=== PATIENT | female | born 1990 | race Caucasian/White ===

== ENCOUNTER 2016-09-19 06:16 | Inpatient (IN) | payer OTHER ==
[~2016-09-19] VITALS: Ht 167.6 cm; Wt 79.5 kg
[~2016-09-19 06:16] MED LIST: CEFTIN500 MG PO; DOXYCYCLINE HY100 MG PO; MOBIC15 MG PO; MOTRIN800 MG PO
[2016-09-19 07:32] LABS: EOSINOPHIL (%) 0.1 % (0-5); IMMATURE GRANULOCYTE (%) 1.8 % (0.0-0.7); IMMATURE GRANULOCYTE COUNT 2.6 K/uL; LYMPHOCYTE COUNT 0.6 K/uL (1.0-2.8); MCH 24.2 PG (29.0-34.0); MCV 69.1 FL (83-99); NEUTROPHIL (%) 86.5 % (45-76); NEUTROPHIL COUNT 12.5 K/uL (1.8-6.4); RBC DIS.WIDTH-CV 18.8 % (11.8-14.6); RED BLOOD COUNT 4.92 M/uL (3.80-5.20); WHITE BLOOD COUNT 14.4 K/uL (4.1-10.2)
[2016-09-19 07:43] LABS: CHLORIDE 96 mEq/L (99-109)
[2016-09-19 07:44] LABS: POTASSIUM 4.4 mEq/L (3.7-5.4); SODIUM 130 mEq/L (136-147)
[2016-09-19 07:45] LABS: GLUCOSE 92 mg/dL (70-99)
[2016-09-19 07:46] LABS: INTER. NORMALIZED RATIO 1.4; PROTHROMBIN TIME 14.9 (9.2-11.2); PTT 40.2 (25-32)
[2016-09-19 07:47] LABS: ANION GAP 22 MEQ/L (2-14)
[2016-09-19 07:49] LABS: GFR ESTIMATE (CALCULATED) 13 mL/min/
[2016-09-19 07:50] LABS: UREA NITROGEN (BUN) 66 mg/dL (9-23)
[2016-09-19 07:53] LABS: TROP-I INTERPRETATION NEGATIVE; TROPONIN-I < 0.01 ng/mL (0.0-0.30)
[2016-09-19 07:54] LABS: D-DIMER ELISA > 4.00 mg/L FEU (< 0.57)
[2016-09-19 08:18] LABS: HEMATOLOGY COMMENT 1 SMEAR COMPATIBLE
[2016-09-19 08:20] LABS: PLAT.SUFFICIENCY DECREASED; PLATELET COUNT 81 K/uL (156-360)
[2016-09-19 12:29] LABS: TOTAL BILIRUBIN 0.8 mg/dL (0.0-1.0)
[2016-09-19 12:30] LABS: ALKALINE PHOSPHATASE 143 IU/L (3-129)
[2016-09-19 15:28] LABS: BASE EXCESS -9.6 mEq/L (-3 to +3); CARBOXY HGB 2.1 % (0-5); COMMENTS - BLOOD GASES AC+; DEVICE NRBM; FI02 100 %; METHEMOGLOBIN 1.2 % (0-1.5); PCO2 46 mm Hg (35-45); PO2 73 mm Hg (80-100); SITE RR; TOTAL RESP RATE 40 resp/min
[2016-09-19 18:38] LABS: BASE EXCESS -7.7 mEq/L (-3 to +3); BICARBONATE 18.8 mEq/L (22-26); CARBOXY HGB 1.7 % (0-5); COMMENTS - BLOOD GASES C+AN/A; METHEMOGLOBIN 0.8 % (0-1.5); PCO2 42 mm Hg (35-45); PO2 73 mm Hg (80-100); SITE LR
[2016-09-19 18:39] LABS: DEVICE 840 VENTILATOR; FI02 100 %; MECHANICAL RATE 30 resp/min; MODE AC/PC; PEEP 7.5 CM/H20; PRESSURE CONTROL VENTILATION 23 CM H20; TOTAL RESP RATE 30 resp/min; pH 7.26 (7.35-7.45)
[2016-09-19 19:50] VITALS: BP 93/40
[2016-09-19 20:00] VITALS: BP 96/45
[2016-09-19 20:20] VITALS: BP 93/40
[2016-09-19 20:28] LABS: ADD MIUA? YES; BILIRUBIN SMALL; BLOOD TRACE; COLOR DK YELLOW ((YELLOW)); GLUCOSE (STRIP) NEGATIVE; KETONES NEGATIVE; LEUKOCYTES SMALL; NITRITE NEGATIVE; PH, URINE 5.5 (5-8); PROTEIN (STRIP) 30; SPECIFIC GRAVITY 1.023 (1.000-1.030)
[2016-09-19 20:36] LABS: AMPHETAMINE NEGATIVE (500 ng/mL); BARBITURATES NEGATIVE (200 ng/mL); BENZODIAZEPINES NEGATIVE (150 ng/mL); COCAINE PRESUMPTIVE POSITIVE (150 ng/mL); INTERNAL CONTROLS VALID? YES; METHADONE NEGATIVE (200 ng/mL); METHAMPHETAMINE NEGATIVE (500 ng/mL); OPIATES (MORPHINE) PRESUMPTIVE POSITIVE (100 ng/mL); OXYCODONE NEGATIVE (100 ng/mL); PHENCYCLIDINE NEGATIVE (25 ng/mL); PROPOXYPHENE NEGATIVE (300 ng/mL); THC CANNABINOIDS NEGATIVE (50 ng/mL); TRICYCLIC ANTIDEPRESSANTS NEGATIVE (300 ng/mL)
[2016-09-19 20:51] LABS: BACTERIA 1+; CASTS NONE SEEN /LPF; CRYSTALS PRESENT; EPITHELIAL CELLS 1+; MUCUS NONE SEEN; RED BLOOD CELLS 0-5 /HPF (0-5)
[2016-09-19 20:52] LABS: AMORPHOUS URATES CRYSTALS 3+
[2016-09-19 21:00] VITALS: BP 87/45
[2016-09-19 21:18] LABS: UR CREATININE CONCENTRATION 156.9 MG/DL
[2016-09-19 21:20] LABS: METH RESISTANT S AUREUS PCR POSITIVE (NEGATIVE)
[2016-09-19 21:30] LABS: PROBE CHECK PASS
[2016-09-19 21:35] LABS: ADD MEDTOX COMMENT Y
[2016-09-19 22:00] VITALS: BP 89/41
[2016-09-19 23:00] VITALS: BP 83/30
[2016-09-19 23:29] LABS: CHLORIDE 99 mEq/L (99-109); SODIUM 132 mEq/L (136-147)
[2016-09-19 23:30] LABS: MAGNESIUM 1.7 mg/dL (1.3-2.7)
[2016-09-19 23:32] LABS: GLUCOSE 109 mg/dL (70-99)
[2016-09-19 23:33] LABS: ANION GAP 15 MEQ/L (2-14); TOTAL BILIRUBIN 0.9 mg/dL (0.0-1.0)
[2016-09-19 23:35] LABS: BASE EXCESS -6.3 mEq/L (-3 to +3); CARBOXY HGB 1.5 % (0-5); COMMENTS - BLOOD GASES C+; DEVICE VENT; FI02 100 %; MECHANICAL RATE 30 resp/min; METHEMOGLOBIN 1.1 % (0-1.5); MODE A/CPC; PCO2 36 mm Hg (35-45); PO2 134 mm Hg (80-100); PRESSURE CONTROL VENTILATION 23 CM H20; SITE ALINE; TOTAL RESP RATE 30 resp/min; pH 7.33 (7.35-7.45)
[2016-09-19 23:36] LABS: UREA NITROGEN (BUN) 72 mg/dL (9-23)
[2016-09-19 23:36] LABS: PEEP 8 CM/H20
[2016-09-19 23:39] LABS: GFR ESTIMATE (CALCULATED) 19 mL/min/; POTASSIUM 3.4 mEq/L (3.7-5.4)
[2016-09-19 23:40] LABS: ALKALINE PHOSPHATASE 100 IU/L (3-129)
[2016-09-20] VITALS: BP 91/38
[2016-09-20 00:06] LABS: HEMATOCRIT 23.5 % (36.0-46.0); MCH 23.8 PG (29.0-34.0); MCHC 34.5 G/DL (30.0-36.0); MCV 68.9 FL (83-99); RBC DIS.WIDTH-CV 18.2 % (11.8-14.6); RBC DIS.WIDTH-SD 44.8 % (39-53); WHITE BLOOD COUNT 12.8 K/uL (4.1-10.2)
[2016-09-20 00:07] LABS: RED BLOOD COUNT 3.41 M/uL (3.80-5.20)
[2016-09-20 00:09] LABS: PLATELET COUNT ND K/uL (156-360)
[2016-09-20 01:00] VITALS: BP 78/32
[2016-09-20 02:00] VITALS: BP 101/47
[2016-09-20 04:07] LABS: BASE EXCESS -5.9 mEq/L (-3 to +3); BICARBONATE 19.5 mEq/L (22-26); CARBOXY HGB 1.8 % (0-5); METHEMOGLOBIN 1.5 % (0-1.5); PCO2 37 mm Hg (35-45); pH 7.33 (7.35-7.45)
[2016-09-20 04:08] LABS: COMMENTS - BLOOD GASES C+; DEVICE VENT; FI02 100 %; MECHANICAL RATE 30 resp/min; MODE A/C PC; PEEP 12 CM/H20; PO2 61 mm Hg (80-100); PRESSURE CONTROL VENTILATION 28 CM H20; SITE ALINE; TOTAL RESP RATE 30 resp/min
[2016-09-20 05:00] VITALS: BP 93/46
[2016-09-20 05:01] LABS: CHLORIDE 102 mEq/L (99-109); POTASSIUM 3.3 mEq/L (3.7-5.4); SODIUM 133 mEq/L (136-147)
[2016-09-20 05:02] LABS: MAGNESIUM 1.7 mg/dL (1.3-2.7)
[2016-09-20 05:03] LABS: GLUCOSE 102 mg/dL (70-99)
[2016-09-20 05:05] LABS: ANION GAP 12 MEQ/L (2-14)
[2016-09-20 05:07] LABS: GFR ESTIMATE (CALCULATED) 21 mL/min/
[2016-09-20 05:08] LABS: UREA NITROGEN (BUN) 69 mg/dL (9-23)
[2016-09-20 05:10] LABS: URIC ACID 11.1 mg/dL (3.1-9.2)
[2016-09-20 05:40] LABS: VANCOMYCIN, TROUGH 15.3 MCG/ML (10-20)
[2016-09-20 06:17] LABS: MCH 23.9 PG (29.0-34.0); MCHC 34.6 G/DL (30.0-36.0); MCV 69.2 FL (83-99); RBC DIS.WIDTH-CV 18.4 % (11.8-14.6); RBC DIS.WIDTH-SD 45.1 % (39-53); RED BLOOD COUNT 3.47 M/uL (3.80-5.20)
[2016-09-20 06:21] LABS: WHITE BLOOD COUNT 17.2 K/uL (4.1-10.2)
[2016-09-20 07:32] LABS: HEMATOLOGY COMMENT 1 SMEAR COMPATIBLE; PLATELET COUNT 87 K/uL (156-360)
[2016-09-20 09:58] LABS: HBSG INDEX 0.18
[2016-09-20 09:59] LABS: ANTI-HEPATITIS A VIRUS (IGM) Nonreactive; HAV INDEX 0.32
[2016-09-20 10:00] LABS: ANTI-HEPATITIS B CORE (IGM) Nonreactive; HBC IgM INDEX 0.14
[2016-09-20 10:01] LABS: HIV INDEX 0.06; HIV-1/2 AB/AG COMBO Nonreactive
[2016-09-20 11:00] LABS: HPCA INDEX 14.36
== END 2016-09-20 06:15 | disposition short-term general hospital (02) | DRG 871 ==
LOC: EME 06:16 → EDOF 11:26 → 4WEST 19:30
PROVIDERS: Emergency Medicine; Internal Medicine Nephrology
PROC: 0B9P30Z Drainage of Left Pleura with Drainage Device, Percutaneous Approach (ICD-10-PCS; principal; 2016-09-20)
PROC: 05HM33Z Insertion of Infusion Device into Right Internal Jugular Vein, Percutaneous Approach (ICD-10-PCS; principal; 2016-09-20)
PROC: 5A1935Z Respiratory Ventilation, Less than 24 Consecutive Hours (ICD-10-PCS; principal; 2016-09-20)
PROC: 0BH17EZ Insertion of Endotracheal Airway into Trachea, Via Natural or Artificial Opening (ICD-10-PCS; principal; 2016-09-20)
PROC: 0B9N30Z Drainage of Right Pleura with Drainage Device, Percutaneous Approach (ICD-10-PCS; principal; 2016-09-20)
DX: A41.9 Sepsis, unspecified organism (principal); J96.90 Respiratory failure, unspecified, unspecified whether with hypoxia or hypercapnia; I33.0 Acute and subacute infective endocarditis; G93.41 Metabolic encephalopathy; J96.01 Acute respiratory failure with hypoxia; R65.21 Severe sepsis with septic shock; J18.9 Pneumonia, unspecified organism; N17.9 Acute kidney failure, unspecified; J93.9 Pneumothorax, unspecified; J98.11 Atelectasis; E87.2 Acidosis; N39.0 Urinary tract infection, site not specified; E87.1 Hypo-osmolality and hyponatremia; F17.200 Nicotine dependence, unspecified, uncomplicated; E86.0 Dehydration; D72.829 Elevated white blood cell count, unspecified; F19.10 Other psychoactive substance abuse, uncomplicated; B19.20 Unspecified viral hepatitis C without hepatic coma; I07.9 Rheumatic tricuspid valve disease, unspecified; B95.62 Methicillin resistant Staphylococcus aureus infection as the cause of diseases classified elsewhere; D69.6 Thrombocytopenia, unspecified; N18.9 Chronic kidney disease, unspecified; B95.61 Methicillin susceptible Staphylococcus aureus infection as the cause of diseases classified elsewhere; F11.10 Opioid abuse, uncomplicated
CPT/HCPCS: 36600; 71010; 76770; 80048; 80053; 80074; 80202; 81003; 82570; 82803; 83605; 83735; 83880; 83935; 84100; 84156; 84300; 84484; 84550; 84999; 85025; 85027; 85379; 85610; 85730; 86703; 87040; 87070; 87077; 87147; 87186; 87205; 87641; 87801; 89190; 93005; 94002; 94640; 94799; 99202; 99281; 99285; C1751; J0330; J0610; J0696; J1644; J2250; J2543; J2704; J3010; J3370; J7030; J7050; J7070; S0028

== ENCOUNTER 2017-02-08 09:54 | Inpatient (IN) | payer OTHER ==
[~2017-02-08] VITALS: Ht 165.1 cm; Wt 63.7 kg
[2017-02-08 10:57] LABS: HEMATOCRIT 31.4 % (36.0-46.0); MCH 25.8 PG (29.0-34.0); MCHC 33.8 G/DL (30.0-36.0); MCV 76.4 FL (83-99); MEAN PLAT.VOLUME 12.9 uM^3 (9.5-12.4); PLATELET COUNT 110 K/uL (156-360); RBC DIS.WIDTH-CV 14.4 % (11.8-14.6); RBC DIS.WIDTH-SD 39.5 % (39-53); RED BLOOD COUNT 4.11 M/uL (3.80-5.20); WHITE BLOOD COUNT 23.5 K/uL (4.1-10.2)
[2017-02-08 11:11] LABS: CHLORIDE 90 mEq/L (99-109); POTASSIUM 3.5 mEq/L (3.7-5.4); SODIUM 126 mEq/L (136-147)
[2017-02-08 11:12] LABS: GLUCOSE 108 mg/dL (70-99)
[2017-02-08 11:14] LABS: ANION GAP 13 MEQ/L (2-14)
[2017-02-08 11:16] LABS: GFR ESTIMATE (CALCULATED) 41 mL/min/
[2017-02-08 11:17] LABS: UREA NITROGEN (BUN) 38 mg/dL (9-23)
[2017-02-08 11:40] LABS: TOTAL BILIRUBIN 1.4 mg/dL (0.0-1.0)
[2017-02-08 11:41] LABS: ALKALINE PHOSPHATASE 129 IU/L (3-129)
[2017-02-08 11:43] LABS: DIRECT BILIRUBIN 1.1 mg/dL (0.0-0.3)
[2017-02-08 13:00] LABS: QUANTITATIVE HCG < 4.0 MIU/ML
[2017-02-08 13:31] LABS: TROP-I INTERPRETATION INDETERMINATE; TROPONIN-I 0.42 ng/mL (0.0-0.30)
[2017-02-08 13:32] LABS: ADD MIUA? YES; BILIRUBIN NEGATIVE; BLOOD LARGE; COLOR YELLOW ((YELLOW)); GLUCOSE (STRIP) NEGATIVE; KETONES NEGATIVE; LEUKOCYTES TRACE; NITRITE NEGATIVE; PROTEIN (STRIP) 30; SPECIFIC GRAVITY 1.006 (1.000-1.030)
[2017-02-08 13:41] LABS: BACTERIA RARE /HPF; EPITHELIAL CELLS RARE /HPF; MUCUS TRACE /LPF; RED BLOOD CELLS 0-5 /HPF (0-5)
[2017-02-08 14:14] LABS: HBSG INDEX 0.24
[2017-02-08 14:15] LABS: ANTI-HEPATITIS A VIRUS (IGM) Nonreactive
[2017-02-08 14:16] LABS: ANTI-HEPATITIS B CORE (IGM) Nonreactive; HBC IgM INDEX 0.18
[2017-02-08 14:17] LABS: HIV INDEX 0.09; HIV-1/2 AB/AG COMBO Nonreactive
[2017-02-08 14:29] LABS: HPCA INDEX 12.38
[2017-02-08 14:50] LABS: AMPHETAMINES QUANT VALUE 0 NG/ML; BARBITUATES QUANT VALUE 0 NG/ML; BENZODIAZEPINES QUANT VALUE 0 NG/ML; BENZODIAZEPINES, URINE SCREEN Negative (200 ng/mL); MARIJUANA QUANT VALUE 0 NG/ML; PHENCYCLIDINE QUANT VALUE 0 NG/ML
[2017-02-08 18:03] VITALS: BP 99/88
[2017-02-08 19:15] VITALS: BP 93/49
[2017-02-08 21:07] LABS: TROP-I INTERPRETATION INDETERMINATE; TROPONIN-I 0.58 ng/mL (0.0-0.30)
[2017-02-08 23:10] VITALS: BP 94/62
[2017-02-09] VITALS (8 sets, daily range): BP systolic 82–113; BP diastolic 55–72
[2017-02-09 01:41] LABS: TROP-I INTERPRETATION INDETERMINATE; TROPONIN-I 0.53 ng/mL (0.0-0.30)
[2017-02-09 13:51] LABS: ANION GAP 9 MEQ/L (2-14); CHLORIDE 103 MEQ/L (99-109); GLUCOSE 112 mg/dL (70-99); POTASSIUM 3.5 MEQ/L (3.7-5.4); SAMPLE HEMOLYSIS CHECK 0; SAMPLE ICTERIC CHECK 0; SAMPLE LIPEMIA CHECK 0; UREA NITROGEN (BUN) 29 mg/dL (9-23)
[2017-02-09 13:53] LABS: GFR ESTIMATE (CALCULATED) > 59 mL/min/; SODIUM 134 MEQ/L (136-147)
[2017-02-09 15:45] LABS: ANION GAP 10 MEQ/L (2-14); CHLORIDE 100 MEQ/L (99-109); GLUCOSE 106 mg/dL (70-99); POTASSIUM 3.8 MEQ/L (3.7-5.4); SAMPLE HEMOLYSIS CHECK 1; SAMPLE ICTERIC CHECK 0; SAMPLE LIPEMIA CHECK 0; UREA NITROGEN (BUN) 29 mg/dL (9-23)
[2017-02-09 15:54] LABS: HEMATOCRIT 32.3 % (36.0-46.0); MCH 25.4 PG (29.0-34.0); MCHC 32.5 G/DL (30.0-36.0); MCV 78.2 FL (83-99); RBC DIS.WIDTH-CV 14.8 % (11.8-14.6); RBC DIS.WIDTH-SD 41.6 % (39-53); RED BLOOD COUNT 4.13 M/uL (3.80-5.20)
[2017-02-09 15:57] LABS: GFR ESTIMATE (CALCULATED) > 59 mL/min/; SODIUM 133 MEQ/L (136-147)
[2017-02-09 17:43] LABS: MEAN PLAT.VOLUME 12.6 uM^3 (9.5-12.4); PLAT.SUFFICIENCY DECREASED; PLATELET COUNT 106 K/uL (156-360)
[2017-02-09 19:28] LABS: ANION GAP 6 MEQ/L (2-14); CHLORIDE 103 MEQ/L (99-109); GFR ESTIMATE (CALCULATED) > 59 mL/min/; GLUCOSE 107 mg/dL (70-99); POTASSIUM 3.6 MEQ/L (3.7-5.4); SAMPLE HEMOLYSIS CHECK 0; SAMPLE ICTERIC CHECK 0; SAMPLE LIPEMIA CHECK 0; SODIUM 132 MEQ/L (136-147); UREA NITROGEN (BUN) 26 mg/dL (9-23)
== END 2017-02-10 03:02 | disposition short-term general hospital (02) | DRG 871 ==
LOC: EME 09:54 → 4EAST 11:44 → EDOF 11:44 → 4EAST 17:59
PROVIDERS: Hospitalist; Internal Medicine
DX: A41.02 Sepsis due to Methicillin resistant Staphylococcus aureus (principal); I33.0 Acute and subacute infective endocarditis; R65.21 Severe sepsis with septic shock; I26.90 Septic pulmonary embolism without acute cor pulmonale; I76 Septic arterial embolism; J18.9 Pneumonia, unspecified organism; J96.00 Acute respiratory failure, unspecified whether with hypoxia or hypercapnia; N17.9 Acute kidney failure, unspecified; E87.1 Hypo-osmolality and hyponatremia; L02.91 Cutaneous abscess, unspecified; I74.8 Embolism and thrombosis of other arteries; F11.20 Opioid dependence, uncomplicated; D64.9 Anemia, unspecified; B18.2 Chronic viral hepatitis C; D69.6 Thrombocytopenia, unspecified; E87.6 Hypokalemia; F17.210 Nicotine dependence, cigarettes, uncomplicated; K59.00 Constipation, unspecified; N18.9 Chronic kidney disease, unspecified; I12.9 Hypertensive chronic kidney disease with stage 1 through stage 4 chronic kidney disease, or unspecified chronic kidney disease; F19.10 Other psychoactive substance abuse, uncomplicated; B95.62 Methicillin resistant Staphylococcus aureus infection as the cause of diseases classified elsewhere; F14.929 Cocaine use, unspecified with intoxication, unspecified; D73.3 Abscess of spleen; K00.0 Anodontia; R00.0 Tachycardia, unspecified; I36.1 Nonrheumatic tricuspid (valve) insufficiency; I34.0 Nonrheumatic mitral (valve) insufficiency; I27.2 Other secondary pulmonary hypertension; R16.2 Hepatomegaly with splenomegaly, not elsewhere classified; B95.7 Other staphylococcus as the cause of diseases classified elsewhere; Z86.14 Personal history of Methicillin resistant Staphylococcus aureus infection; Z91.19 Patient's noncompliance with other medical treatment and regimen
CPT/HCPCS: 71020; 71250; 74176; 76937; 80048; 80048 91; 80053; 80074; 80076; 80306 90; 81003; 83605; 83735; 83930; 84484; 84702; 85025; 85027; 86703; 87040; 87077; 87116; 87186; 87206; 87641; 87801; 93306; 99281; 99285; C1753; J1580; J1644; J2270; J2543; J3370; J3475; J3480; J7030; J7050; S0028

== ENCOUNTER 2017-06-24 21:12 | Emergency (ER) | payer OTHER ==
[~2017-06-24] VITALS: Ht 165.1 cm; Wt 77.0 kg
[2017-06-24 21:38] LABS: HEMATOCRIT 41.7 % (36.0-46.0); MCH 28.6 PG (29.0-34.0); MCHC 31.9 G/DL (30.0-36.0); MCV 89.7 FL (83-99); MEAN PLAT.VOLUME 10.5 uM^3 (9.5-12.4); PLATELET COUNT 270 K/uL (156-360); RBC DIS.WIDTH-CV 14.7 % (11.8-14.6); RED BLOOD COUNT 4.65 M/uL (3.80-5.20); WHITE BLOOD COUNT 15.6 K/uL (4.1-10.2)
[2017-06-24 21:51] LABS: CHLORIDE 106 mEq/L (99-109); SODIUM 136 mEq/L (136-147)
[2017-06-24 21:52] LABS: GLUCOSE 246 mg/dL (70-99)
[2017-06-24 21:54] LABS: ANION GAP 12 MEQ/L (2-14)
[2017-06-24 21:55] LABS: SERUM ETHYL ALCOHOL 84 mg/dL
[2017-06-24 21:56] LABS: GFR ESTIMATE (CALCULATED) > 59 mL/min/
[2017-06-24 21:57] LABS: UREA NITROGEN (BUN) 11 mg/dL (9-23)
[2017-06-24] MEDS ORDERED: NARCAN4 MG NS (23:23)
[2017-06-25 00:15] VITALS: BP 117/82
== END 2017-06-25 00:25 | disposition left against medical advice (07) ==
LOC: EME 21:12 → EDBD 21:12 → EME 06-25 00:25
PROVIDERS: Emergency Medicine
DX: J81.1 Chronic pulmonary edema (principal); J90 Pleural effusion, not elsewhere classified; F19.10 Other psychoactive substance abuse, uncomplicated; T40.5X1A Poisoning by cocaine, accidental (unintentional), initial encounter; T40.1X1A Poisoning by heroin, accidental (unintentional), initial encounter; F32.9 Major depressive disorder, single episode, unspecified; F41.9 Anxiety disorder, unspecified; F17.200 Nicotine dependence, unspecified, uncomplicated
CPT/HCPCS: 71010; 80048; 85027; 99281; 99285; G0480; J1940; J2310